=== PATIENT | female | born 1980 | race Caucasian/White ===

== ENCOUNTER 2016-09-23 09:18 | Day surgery (SDC) | payer OTHER ==
[~2016-09-23] VITALS: Ht 172.7 cm; Wt 103.4 kg
[~2016-09-23 09:18] MED LIST: CALC-434 PO; CHOL10008 PO; CITA20TA PO; DIAZ2TAB2 PO; ETHI1TAB16 PO; MULT-666 PO; OMEG500C PO; OMEP20CA11 PO; RANI150T11 PO; SPIR25TA3 PO
[2016-09-23] MEDS ORDERED: Propofol 10,000 mCg/mL 20 mL Inj ONE (09:19)
[2016-09-23] MEDS ORDERED: fentaNYL-PF 50 mCg/mL 2 mL Inj ONE (09:19)
--- NOTE | 2016-09-23 09:37 | PCM.HPANE ---
Patient Data Surgeon Admitting Provider: Attending Provider:Boubacar Pabon MD Primary Care Physician:Boubacar Huff MD Other Provider:Emilia Merrittingham Anesthesia Reason for Visit Family History Of Colon Cancer Ht/WT & BMI Body Mass Index Allergies Coded Allergies: No Known Allergies (Unverified , 07/29/16) Past Anesthesia History Anesthesia History: Denies:: Abnormal Airway, Anesthesia Reactions, Difficult Intubation, Fam Anesthesia Reaction, Fam Malignant Hypertherm, Malignant Hyperthermia Diabetes History Hx Diabetes?: No MRSA MRSA: No Medications Reported Medications Diazepam 2 Mg Tablet2 Mg PO TID PRN For Anxiety Ref 0 09/21/16 [place]-3 Fatty Acids (Fish Oil)500 Mg Capsule.dr1,000 Mg PO DAILY 09/21/16 Cholecalciferol (Vitamin D3) (Vitamin D3)1,000 Unit Tab.chew1,000 Unit PO 07/29/16 Spironolactone 25 Mg [id number] Mg PO DAILY #30 TABLET Ref 0 07/29/16 Omeprazole 20 Mg Capsule.dr20 Mg PO DAILY Ref 0 07/29/16 Multivitamin (Once Daily)1 Each Tablet1 Each PO DAILY 07/29/16 Ethinyl Estradiol/Drospirenone 0.02-3 mg (Gianvi 0.02-3 mg)1 Each Tablet1 Tablet PO DAILY #1 PACK 07/29/16 Calcium Carb/Mag Oxide/Vit D3 (Calcium Magnesium + D Tablet)1 Each Tablet1 Each PO DAILY 07/29/16 Citalopram Hydrobromide (Celexa)20 Mg [id number] Mg PO DAILY Ref 0 07/29/16 Discontinued Reported Medications Ranitidine (Zantac)150 Mg [id number] Mg PO BID 09/21/16 History HEENT History: Denies:: Abnormal Airway Difficult Intubation Dysphagia Hearing Problem Hx of Heart Problems?: Yes Cardiovascular History: Positive for:: Hypertension Denies:: AICD Atrial Fibrillation Chest Pain Pacemaker Valvular Heart Disease Hx of Respiratory Problem?: No Neurological History: Denies:: CVA Hx of GI Problems?: Yes Gastrointestinal History: Positive for:: Gastroesphageal Reflux Denies:: Cirrhosis Diverticulitis Hiatal Hernia Rectal Bleeding Female Hx: Denies:: Currently Musculoskeletal History: Denies:: Joint Replacement Psycho Social History: Positive for:: Anxiety Hx Depression Hx Surgeries?: Yes (COLONOSCOPY) Hx Any Other Health Problems?: Yes Hx Diabetes: No Hx Alcohol Use: Yes Stop/Bang Risk Assessment Category Category 1A: Patient has history of documented sleep apnea, and HAS NOT received any narcotic, sedative or anesthesia administration during this stay. Category 1B: Patient has history of documented sleep apnea, and HAS received any narcotic , sedative or anesthesia administration during this stay Category 2: Patient has SUSPECTED Obstructive Sleep Apnea, and HAS received any narcotic , sedative or anesthesia administration during this stay. Category 3: Patient has SUSPECTED Obstructive Sleep Apnea and HAS NOT received narcotic, sedative or anesthesia administration during this stay. Category 4: Outpatient in Procedural Areas with known sleep apnea or who screen positive for High Risk via the STOP/BANG questionnaire. Exam Exam General Appearance: Alert, Oriented X3, Cooperative, No Acute Distress HEENT/AIRWAY: MP 2 Lungs: Clear to Auscultation Heart: Exam Unremarkable Plan Impression Patient chart reviewed, patient interviewed and anesthestic plan with risks, benefits, and alternatives discussed, and informed consent obtained. ASA Physical Status: ASA2 Mod Systemic Disease Anesthetic Plan: MAC Bene/Risks/Altern/Consents: Yes HP Complete Prior to Induction: Yes Reynaldo Platt MD Sep 23, 2016 07:33
[2016-09-23 09:39] VITALS: BP 134/84; PULSE 75; O2SAT 100
[2016-09-23] MEDS: Lactated Ringer's 1,000 ML IV ONE ×2 (09:48→09:56)
[2016-09-23 10:05] VITALS: BP 110/70; PULSE 77; RESP 16; O2SAT 100
[2016-09-23 10:15] VITALS: BP 116/74; PULSE 71; RESP 16; O2SAT 100
--- NOTE | 2016-09-23 10:20 | ENDO ---
[address] [address] ENDOSCOPY PROCEDURE PATIENT: LOCO JACOME : 1980 MR#: [id number] ADMIT: 09/23/2016 JOB ID: [id number] DATE OF SERVICE: 09/23/2016 TYPE OF OPERATION: Colonoscopy. PREOPERATIVE DIAGNOSIS(ES): Family history of colon cancer. POSTOPERATIVE DIAGNOSIS(ES): Small internal hemorrhoids. ANESTHESIA: Monitored anesthesia care. COMPLICATIONS: None. BLOOD LOSS: Minimal. DESCRIPTION OF PROCEDURE: After risks and benefits explained to the patient, informed consent was obtained. After anesthesia administered, colonoscope was then inserted into the rectum to the cecum. Mucosa carefully examined. Prep of the patient was excellent. After procedure was done, the scope withdrawn and procedure terminated. FINDINGS: Upon inspection of the anus, no masses, hemorrhoids, ulcers, or fissures that were seen. Throughout the entire examination, there were no polyps, masses, or lesions. Retroflexion showed small internal hemorrhoids. IMPRESSION: Small internal hemorrhoids. RECOMMENDATIONS: Repeat colonoscopy in five years, given family history of colon cancer, stool softener as needed for constipation.
[2016-09-23 10:25] VITALS: BP 121/75; PULSE 69; RESP 16; O2SAT 100
== END 2016-09-23 23:59 | disposition home or self-care (01) ==
LOC: END 09:18
PROVIDERS: ATTEND Internal Medicine Gastroenterology
DX: Z12.11 Encounter for screening for malignant neoplasm of colon (principal); K64.8 Other hemorrhoids; Z80.0 Family history of malignant neoplasm of digestive organs
CPT/HCPCS: G0105; J2250; J7120

== ENCOUNTER 2016-10-21 11:02 | Day surgery (SDC) | payer OTHER ==
[2016-10-21] VITALS (8 sets, daily range): BP systolic 131–144; BP diastolic 63–77; PULSE 79–95; RESP 12–19; O2SAT 97–100
[~2016-10-21] VITALS: Ht 172.7 cm; Wt 104.5 kg
[~2016-10-21 11:02] MED LIST changes: +Lactated Ringer's 1,000 ML IV SCH; -RANI150T11 PO
[2016-10-21] MEDS ORDERED: MetoCLOpramide 5 mg/mL 2 mL Inj ONE (11:03)
[2016-10-21] MEDS ORDERED: Ondansetron 2 mg/mL 2 mL Inj ONE (11:03)
[2016-10-21] MEDS ORDERED: fentaNYL-PF 50 mCg/mL 2 mL Inj ONE (11:03)
[2016-10-21] MEDS ORDERED: Dexamethasone 4 mg/mL Inj ONE (11:03)
[2016-10-21] MEDS ORDERED: Propofol 10,000 mCg/mL 20 mL Inj ONE (11:03)
[2016-10-21] MEDS ORDERED: Lactated Ringer's 1,000 ML IV ONE (11:21)
[2016-10-21] MEDS ORDERED: HYDROmorphone 1 mg/mL Inj IVPUSH PRN (12:05)
[2016-10-21] MEDS ORDERED: Dexamethasone 4 mg/mL Inj IVPUSH PRN (12:05)
[2016-10-21] MEDS ORDERED: MetoCLOpramide 5 mg/mL 2 mL Inj IVPUSH PRN (12:05)
[2016-10-21] MEDS ORDERED: Lactated Ringer's 500 ML IV PRN (12:05)
[2016-10-21] MEDS ORDERED: Lactated Ringer's 1,000 ML IV SCH (12:05)
[2016-10-21] MEDS ORDERED: Ondansetron 2 mg/mL 2 mL Inj IVPUSH PRN ×2 (12:05→12:55)
[2016-10-21] MEDS ORDERED: EPHEDrine Sulfate 50 mg/mL Inj IVPUSH PRN (12:05)
[2016-10-21] MEDS ORDERED: Phenylephrine 10,000 mCg/mL Inj IVPUSH PRN (12:05)
[2016-10-21] MEDS ORDERED: fentaNYL-PF 50 mCg/mL 2 mL Inj IVPUSH PRN (12:05)
--- NOTE | 2016-10-21 12:05 | PCM.HPANE ---
Patient Data Surgeon Admitting Provider: Attending Provider:Jules Medrano MD Primary Care Physician:Boubacar Huff MD Other Provider:Emily Merritt Anesthesia Reason for Visit Abnormal Uterine Bleeding Ht/WT & BMI Height (Feet): 5 Height (Inches): 8 Weight (Kilograms): 104.78 Body Mass Index 35.00 Allergies Coded Allergies: No Known Allergies (Unverified , 07/29/16) Past Anesthesia History Anesthesia History: Denies:: Abnormal Airway, Anesthesia Reactions, Difficult Intubation, Fam Anesthesia Reaction, Fam Malignant Hypertherm, Malignant Hyperthermia Diabetes History Hx Diabetes?: No MRSA MRSA: No Medications Hypertension Medication: No Home Meds Incl Beta Demian: No Reported Medications Diazepam 2 Mg Tablet2 Mg PO TID PRN For Anxiety Ref 0 09/21/16 [place]-3 Fatty Acids (Fish Oil)500 Mg Capsule.dr1,000 Mg PO DAILY 09/21/16 Cholecalciferol (Vitamin D3) (Vitamin D3)1,000 Unit Tab.chew1,000 Unit PO 07/29/16 Spironolactone 25 Mg [id number] Mg PO DAILY #30 TABLET Ref 0 07/29/16 Omeprazole 20 Mg Capsule.dr20 Mg PO DAILY Ref 0 07/29/16 Multivitamin (Once Daily)1 Each Tablet1 Each PO DAILY 07/29/16 Ethinyl Estradiol/Drospirenone 0.02-3 mg (Gianvi 0.02-3 mg)1 Each Tablet1 Tablet PO DAILY #1 PACK 07/29/16 Calcium Carb/Mag Oxide/Vit D3 (Calcium Magnesium + D Tablet)1 Each Tablet1 Each PO DAILY 07/29/16 Citalopram Hydrobromide (Celexa)20 Mg [id number] Mg PO DAILY Ref 0 07/29/16 History HEENT History: Denies:: Abnormal Airway Cataracts Difficult Intubation Dysphagia Glaucoma Hearing Problem Hx of Heart Problems?: No Cardiovascular History: Denies:: AICD Abdominal Aortic Aneurism Atrial Fibrillation Chest Pain Hypertension Pacemaker Valvular Heart Disease Hx of Respiratory Problem?: No Respiratory History: Denies:: Asthma (exercise induced- not diagnosed ) COPD Emphysema Oxygen Administration Pneumonia (several years ago) Tuberculosis Use of C-PAP Machine Use of Inhalers / NEBS Hx Neurologic Problems?: No Neurological History: Denies:: Alzheimer's Disease CVA Dementia Headaches Multiple Sclerosis Parkinson's Disease Seizures Hx of GI Problems?: Yes Gastrointestinal History: Positive for:: Gastroesphageal Reflux Heartburn Denies:: Cirrhosis Diverticulitis Gall Bladder Disease Hiatal Hernia Rectal Bleeding Hx of Problems?: No Genitourinary History: Denies:: Kidney Stones Urinary Tract Infection Female Hx: Denies:: Currently Problems with Breasts? Skin History: Denies:: History Skin Disorders? Pressure Ulcers Hx Musculoskeletal Problems?: Yes Musculoskeletal History: Positive for:: Musculoskeletal Trauma (recent sprain right hip ligament) Denies:: Back Injury Fibromyalgia Joint Replacement Osteoarthritis Rheumatoid Arthritis Psycho Social History: Positive for:: Anxiety Hx Depression Hx Surgeries?: Yes (COLONOSCOPY) Hx Any Other Health Problems?: Yes Other History: Denies:: Cancer Thyroid Disease History Blood Transfusions: Denies:: Accept Blood Products? Blood Transfusions Hx Diabetes: No Hx Alcohol Use: YesAlcoholic Drinks Per Day: one to two weeklyHx Substance Use : No Smoking Status: Never Smoker Have You Smoked inLast 12 mo: No Stop/Bang S-Snoring: Do You Snore Loudly: No T-Tired: feel tired, fatigued: No O-Obsered: Observed not breath: No P-Blood Pressure: treated: No B- Body Mass Index > 35 kg/m2: Yes A- Age over 50: No N- Neck Large Circumference: No G- Gender Male: No ELOISE Total Score: 1 Risk Assessment Category Category 1A: Patient has history of documented sleep apnea, and HAS NOT received any narcotic, sedative or anesthesia administration during this stay. Category 1B: Patient has history of documented sleep apnea, and HAS received any narcotic , sedative or anesthesia administration during this stay Category 2: Patient has SUSPECTED Obstructive Sleep Apnea, and HAS received any narcotic , sedative or anesthesia administration during this stay. Category 3: Patient has SUSPECTED Obstructive Sleep Apnea and HAS NOT received narcotic, sedative or anesthesia administration during this stay. Category 4: Outpatient in Procedural Areas with known sleep apnea or who screen positive for High Risk via the STOP/BANG questionnaire. Exam Exam General Appearance: Alert, Oriented X3, Cooperative, No Acute Distress HEENT/AIRWAY: MP 2 Lungs: Clear to Auscultation Heart: Exam Unremarkable Plan Impression Patient chart reviewed, patient interviewed and anesthestic plan with risks, benefits, and alternatives discussed, and informed consent obtained. ASA Physical Status: ASA2 Mod Systemic Disease Anesthetic Plan: GA Bene/Risks/Altern/Consents: Yes HP Complete Prior to Induction: Yes Reynaldo Platt MD Oct 21, 2016 07:54
[2016-10-21] MEDS ORDERED: diphenhydrAMINE 25 mg Capsule PO PRN (12:55)
[2016-10-21] MEDS ORDERED: oxyCODONE-Acetamin 5-325 mg Tablet PO PRN (12:55)
--- NOTE | 2016-10-21 12:56 | PCM.DIMED ---
Discharge Instructions Date of Service Oct 21, 2016 Dates of Hospitalization Diet No restrictions Activity No restrictions Call your provider Fever or Chills, Shortness of breath, Bleeding, Chest pain, Vomitting, Excessive diarrhea, Weakness (unilateral) Patient Instructions Follow-up with PCP in: 2 weeks Jules Medrano MD Oct 21, 2016 12:55
--- NOTE | 2016-10-21 12:56 | PCM.ANEP1 ---
Post Anesthesia Phase 1 PACU Phase 1 Assessment Vital Signs Vital Signs Date Time Temp Pulse Resp B/P Pulse Ox O2 Delivery O2 Flow Rate FiO2 10/21/16 12:55 95 16 136/74 100 Room Air 10/21/16 11:22 36.5 79 16 131/67 100 Room Air Anesthetic Administered: GA Level of Alertness: Awake, talking MARIE's with Equal Strength: Yes Pain: Yes Nausea or Vomiting: No Oxygen Delivery: Room Air Lungs: Clear to Auscultation Dermatome Level: Full Sensation Reynaldo Platt MD Oct 21, 2016 12:56
--- NOTE | 2016-10-21 13:46 | PCM.ANEP2 ---
Post Anesthesia Evaluation ASA/CMS Post Anesthesia VS in Patient's Normal Range?: Yes Resp Stable; Airway Patent?: Yes CV Function & Hydration Stable: Yes Mental Status Recovered?: Yes Pain control Satisfactory?: Yes N/V Control Satisfactory?: Yes Reynaldo Platt MD Oct 21, 2016 13:46
--- NOTE | 2016-10-21 15:00 | OP ---
[address] [address] OPERATIVE REPORT PATIENT: LOCO JACOME : 1980 MR#: [id number] ADMIT: 10/21/2016 JOB ID: [id number] DATE OF SURGERY: 10/21/2016 PROCEDURE: 1. Hysteroscopy, diagnostic. 2. NovaSure endometrial ablation. PREOPERATIVE DIAGNOSIS(ES): Abnormal uterine bleeding. POSTOPERATIVE DIAGNOSIS(ES): Abnormal uterine bleeding. SURGEON: Jules Medrano MD. PIPE AND TEST SUPERVISOR: None. ANESTHESIA: General. ESTIMATED BLOOD LOSS: 100 mL. ESTIMATED URINE OUTPUT: 10 mL. ESTIMATED FLUIDS: 800 mL of lactated Ringer. ESTIMATED FLUID DEFICIT DURING MYOSURE PROCEDURE: 200 mL of normal saline. COMPLICATIONS: None. FINDINGS: Normal appearance of the perineum. Some external hemorrhoids. Normal vagina. The cervix is displaced anteriorly. The uterus is anteverted and normal in size. Adnexa palpate normal. Increased vascularity of the cervix with the cervical branch of uterine artery accidentally cut during the procedure that explains the blood loss of 100 cc, it was repaired with 2-0 Vicryl in a running, locking fashion. DESCRIPTION OF PROCEDURE: The patient was brought to the operating room, where she underwent general anesthesia without difficulty. The patient was placed in the dorsal lithotomy position using Duane stirrups. She was prepped and draped in usual surgical fashion. Time-out was performed verifying correct patient, correct procedure. Weighted speculum was placed into the vagina. The Bueno retractor was placed as well. The cervix was visualized and grasped with a tenaculum. The cervix was dilated using Hegar dilators to the size of 7 mm. Using MyoSure hysteroscope, the hysteroscopy was performed. The patient not found to have any abnormal polyp or endometrial hyperplasia during hysteroscopy, several images were obtained. The hysteroscope was removed, and the NovaSure endometrial ablation was performed. Using NovaSure instrument, the cavity assessment was done. The uterus measured 4.5 cm for the length and 2.7 cm for the width. With appropriate setting after the cavity was assessed, ablation cycle was started, successfully completed in 85 seconds. Postprocedure hysteroscopy was performed, ablated endometrial cavity was seen, no residual areas, non-ablated areas were seen, several images were obtained. All the instruments were removed. The patient had excessive bleeding at the site of tenaculum insertion going from the cervical branch of the uterine artery. Interrupted 2-0 Vicryl suture was applied in a running, locking fashion, and the bleeding subsided. Monsel solution was applied on top of it. After hemostasis was reassured, all the instruments were removed. The patient was repositioned into the supine position. She tolerated the procedure well and was transferred to the recovery room in stable condition.
== END 2016-10-21 23:59 | disposition home or self-care (01) ==
LOC: SAS 11:02
PROVIDERS: ATTEND Legal Medicine
DX: N93.9 Abnormal uterine and vaginal bleeding, unspecified (principal); F32.9 Major depressive disorder, single episode, unspecified; K64.4 Residual hemorrhoidal skin tags
CPT/HCPCS: 58563; J1100; J2175; J2405; J2765; J3010; J7120